=== PATIENT | female | born 1970 | race Asian ===

== ENCOUNTER 2023-07-03 13:48 | Emergency (ER) | payer OTHER ==
[~2023-07-03] VITALS: Ht 154.9 cm; Wt 68.5 kg
[2023-07-03 14:19] VITALS: BP_SYST 169; PULSE 94; RESP 20; TEMP 98.3; O2SAT 98
[2023-07-03 16:23] LABS: BASOPHILS % (AUTO) 0.3 % (0.0-2.0); EOSINOPHILS # (AUTO) 0.1 K/uL (0.0-0.4); EOSINOPHILS % (AUTO) 1.7 % (0.0-4.0); HEMATOCRIT 36.5 % (36-48); LYMPHOCYTES % (AUTO) 26.5 % (20.5-51.5); MEAN CORPUSCULAR HEMOGLOBIN 27 pg (27-31); MEAN CORPUSCULAR HGB CONC 33 % (32-36); MEAN CORPUSCULAR VOLUME 83 fL (79.0-98.0); MONOCYTES # (AUTO) 0.7 K/uL (0.0-1.0); MONOCYTES % (AUTO) 9.5 % (1.7-9.3); NEUTROPHILS # (AUTO) 4.6 K/uL (1.8-7.7); PLATELET COUNT (AUTO) 366 K/uL (130-430); RED BLOOD CELL COUNT(AUTO) 4.41 MIL/uL (4.2-6.2); RED CELL DISTRIBUTION WIDTH 15.2 % (9.0-15.0); WHITE BLOOD COUNT (AUTO) 7.4 K/uL (4.8-10.8)
[2023-07-03 16:30] LABS: CALCIUM 9.1 mg/dL (8.4-11.0); CREATININE 0.98 mg/dL (0.55-1.30); POTASSIUM 4.3 mmol/L (3.5-5.1)
[2023-07-03 16:34] LABS: ALBUMIN 3.8 g/dL (3.4-4.8); TOTAL BILIRUBIN 0.4 mg/dL (0.0-1.0); TOTAL PROTEIN, SERUM 7.4 g/dL (6.4-8.3)
[2023-07-03 18:30] VITALS: BP_SYST 169; PULSE 94; RESP 20; TEMP 98.3; O2SAT 98
== END 2023-07-03 18:30 | disposition home or self-care (01) ==
LOC: SED 13:48
DX: M54.12 Radiculopathy, cervical region (principal); M54.2 Cervicalgia; R51.9 Headache, unspecified; Z79.899 Other long term (current) drug therapy
CPT/HCPCS: 36415; 70450-TC; 72125-TC; 76376; 80053; 85025; 99284

== ENCOUNTER 2024-03-02 13:16 | Emergency (ER) | payer OTHER ==
[~2024-03-02] VITALS: Ht 157.5 cm; Wt 70.3 kg
[2024-03-02 13:40] LABS: BASOPHILS % (AUTO) 0.3 % (0.0-2.0); EOSINOPHILS # (AUTO) 0.1 K/uL (0.0-0.4); EOSINOPHILS % (AUTO) 1.5 % (0.0-4.0); HEMATOCRIT 37.9 % (36-48); HEMOGLOBIN 12.6 g/dL (12.0-16.0); LYMPHOCYTES # (AUTO) 2.4 K/uL (1.0-5.5); MEAN CORPUSCULAR HEMOGLOBIN 27 pg (27-31); MEAN CORPUSCULAR HGB CONC 33 % (32-36); MEAN CORPUSCULAR VOLUME 82 fL (79.0-98.0); MONOCYTES # (AUTO) 0.6 K/uL (0.0-1.0); MONOCYTES % (AUTO) 6.4 % (1.7-9.3); NEUTROPHILS % (AUTO) 65.8 % (40.0-70.0); PLATELET COUNT (AUTO) 391 K/uL (130-430); RED BLOOD CELL COUNT(AUTO) 4.64 MIL/uL (4.2-6.2); RED CELL DISTRIBUTION WIDTH 15.2 % (9.0-15.0); WHITE BLOOD COUNT (AUTO) 9.1 K/uL (4.8-10.8)
[2024-03-02 13:53] VITALS: BP_SYST 154; PULSE 85; RESP 17; TEMP 96.9; O2SAT 97
[2024-03-02 14:04] LABS: ANION GAP 7 (5-15); CALCIUM 9.1 mg/dL (8.4-11.0); CARBON DIOXIDE 31 mmol/L (23-29); CHLORIDE 100 mmol/L (98-107); GFR AFRICAN AMERICAN 84 mL/min (>90); GLUCOSE 215 mg/dL (74-106); POTASSIUM 3.5 mmol/L (3.5-5.1); SODIUM SERUM 138 mmol/L (136-145); UREA NITROGEN, BLOOD 10 mg/dL (8-21)
[2024-03-02 14:06] LABS: GFR NON AFRICAN-AMERICAN 69 mL/min (>90)
[2024-03-02 14:26] LABS: COVID19 ANTIGEN SOFIA FIA NEGATIVE (NEGATIVE)
[2024-03-02 14:28] LABS: INFLUENZA TYPE A Negative (NEGATIVE); INFLUENZA TYPE B NEGATIVE (NEGATIVE)
[2024-03-02] MEDS ORDERED: PRED20TA PO (14:36)
[2024-03-02] MEDS ORDERED: HYDR-3917 PO (14:36)
[2024-03-02] MEDS ORDERED: ALBMDI INH (14:36)
[2024-03-02 14:42] VITALS: BP_SYST 131; PULSE 77; RESP 17; TEMP 98; O2SAT 98
== END 2024-03-02 14:42 | disposition home or self-care (01) ==
LOC: SED 13:16
DX: J40 Bronchitis, not specified as acute or chronic (principal); R05.9 Cough, unspecified; R09.89 Other specified symptoms and signs involving the circulatory and respiratory systems; Z20.822 Contact with and (suspected) exposure to COVID-19
CPT/HCPCS: 36415; 71045; 80048; 83037; 83605; 83880; 84484; 85025; 99284

== ENCOUNTER 2024-07-29 13:26 | Emergency (ER) | payer OTHER ==
[~2024-07-29] VITALS: Ht 157.5 cm; Wt 72.6 kg
[~2024-07-29 13:26] MED LIST: ALBMDI INH; HYDR-3917 PO; PRED20TA PO
[2024-07-29 13:42] VITALS: BP_SYST 135; PULSE 78; RESP 18; TEMP 97.8; O2SAT 99
[2024-07-29] MEDS ORDERED: AUG875 PO (14:29)
[2024-07-29] MEDS ORDERED: ERYEYE RIGHT EYE (14:29)
[2024-07-29] MEDS ORDERED: IBUP-1969 PO (14:29)
[2024-07-29] MEDS: AMOXICILLIN/POTASSIUM CLAV 875 MG TABLET PO ONE (15:24)
[2024-07-29 15:30] VITALS: BP_SYST 127; PULSE 62; RESP 16; TEMP 97.8; O2SAT 100
== END 2024-07-29 15:30 | disposition home or self-care (01) ==
LOC: SED 13:26
DX: L03.213 Periorbital cellulitis (principal); Z79.52 Long term (current) use of systemic steroids
CPT/HCPCS: 99283